=== PATIENT | female | born 1935 | race Caucasian/White ===

== ENCOUNTER 2018-02-03 09:03 | Inpatient (IN) | payer OTHER ==
[2018-01-30 12:51] VITALS: Ht 160 cm; Wt 47.7 kg
--- NOTE | 2018-02-02 14:55 | History and Physical ---
History & Physical Date Feb 02, 2018. Chief Complaint left shoulder pain History of Present Illness The patient is a 82 year old female with complaints of left shoulder pain following a fall. She was treated conservatively by another provider but she was failing to make progress. She later had a CT scan of the left shoulder that noted a 100% displaced proximal humerus fx. She is now being set up for surgical tx. Past Medical/Surgical History PMH: CAD, HTN, hypercholesterolemia, anxiety/depression Past surgical hx: CABG, bilateral foot surgeries, cholecystectomy, hysterectomy Family hx: noncontributory Social hx: Denies tobacco use Allergies Coded Allergies: No Known Allergies (Unverified , 01/30/18) Home Medications Scheduled Aspirin (Aspirin Ec), 81 MG PO HS Calcium (Calcium), 600 MG PO QAM Lisinopril (Prinivil), 20 MG PO HS Metoprolol Tartrate (Lopressor) (Lopressor), 25 MG PO BID Mirtazapine Soltab (Remeron Soltab), 15 MG PO HS Nutritional Supplements (Grapeseed Extract), 1 CAP PO QAM Pravastatin (Pravachol ), 20 MG PO HS Scheduled PRN Clonazepam (Klonopin), 0.5 MG PO BID PRN for Anxiety Physical Examination Skin: warm/dry, no rash Eyes: normal inspection ENT: normal ENT inspection Head: normocephalic, atraumatic Neck: supple, no adenopathy, trachea midline Respiratory/Chest: lungs clear, normal breath sounds, no respiratory distress Cardiovascular: regular rate, rhythm Abdomen / GI: normal bowel sounds, non tender Extremities: + pertinent finding (Left shoulder: + swelling. Tender at the proximal humerus. No ROM or strength testing. NV intact LUE.) Neurologic/Psych: no motor/sensory deficits, alert, oriented x 3 Diagnosis Left proximal humerus fx Plan of Treatment Schedule patient for ORIF left proximal humerus fx. All potential risks, benefits, complications, alternatives, and rehab have been discussed and the patient wishes to proceed. She will be scheduled for 02.03.18.
[~2018-02-03] VITALS: Ht 160 cm; Wt 47.7 kg
[~2018-02-03 09:03] MED LIST: ASPI81TA28 PO; CALC600T37 PO; KLN/5 PO; LACTATED RINGER'S 1000ML 1,000 ML IV SCH; LISI20TA3 PO; METO25TA56 PO; MIRT15TA2 PO; NUTRCAP54 PO; PRAV20TA PO
--- NOTE | 2018-02-03 09:34 | DIAGNOSTIC IMAGING REPORT ---
CHEST ONE VIEW PORTABLE HISTORY: Preop. STAT CXR STAT UPON ARRIVAL COMPARISON: None. FINDINGS: The lungs are mildly hyperexpanded with apical predominant emphysematous changes. There are poststernotomy changes. The lungs are clear. The heart is mildly enlarged. No pleural effusions. No pneumothorax. There is a left humeral neck fracture which is mildly displaced. IMPRESSION: 1. Mildly displaced left humeral neck fracture. 2. Otherwise, no acute process within the chest. Electronically signed by: Jorge De Santiago M.D. 02/03/2018 9:32 AM Dictated Date/Time: 02/03/2018 9:31 AM
[2018-02-03 09:40] VITALS: BP 176/65; PULSE 74; TEMP 36.6; O2SAT 99
[2018-02-03] MEDS ORDERED: ROPIVACAINE 0.5% 5 MG/ML 30 ML VIAL ONE (10:36)
[2018-02-03] MEDS ORDERED: DEXAMETHASONE SOD INJ 4 MG/ML VIAL ONE ×2 (10:36→13:10)
[2018-02-03] MEDS ORDERED: CEFAZOLIN SOD 1000MG/7.5 ML IV PUSH ONE (10:57)
[2018-02-03] MEDS ORDERED: NURSING VERBAL MED ORDER ONE (11:00)
--- NOTE | 2018-02-03 11:03 | History & Physical Bridge Note ---
H&P Re-Evaluation Bridge Note: I have examined the patient, reviewed the History & Physical and in the interval since the performance of the History & Physical I have noted the following changes of clinical significance: No changes noted
[2018-02-03] MEDS ORDERED: ONDANSETRON INJ 2 MG/ML 2 ML VIAL IV PRN ×2 (12:00→17:30)
[2018-02-03] MEDS ORDERED: FENTANYL CITRATE INJ 50 MCG/1 ML 2 ML VIAL IV PRN (12:00)
[2018-02-03] MEDS ORDERED: HYDROmorphone INJ 0.5 MG/0.5 ML SYR IV PRN (12:00)
[2018-02-03] MEDS ORDERED: ATROPINE SULFATE 0.1 MG/ML 5ML SYR IV PRN (12:00)
[2018-02-03] MEDS ORDERED: LABETALOL HCL IV 5 MG/ML 20ML IV PRN (12:00)
[2018-02-03] MEDS ORDERED: EpHEDrine SULFATE INJ 50 MG/ML AMP IV PRN (12:00)
[2018-02-03] MEDS ORDERED: MEPERIDINE HCL 25 MG/ML CARP IV PRN (12:00)
[2018-02-03] MEDS ORDERED: LIDOCAINE HCL 2% 2 ML VIAL (20MG/ML) ONE (12:11)
[2018-02-03] MEDS ORDERED: PROPOFOL IV EMULSION 10 MG/ML 20 ML VIAL ONE (12:11)
[2018-02-03] MEDS ORDERED: FENTANYL CITRATE INJ 50 MCG/1 ML 2 ML VIAL ONE (12:12)
[2018-02-03] MEDS ORDERED: MIDAZOLAM HCL 1 MG/ML 2ML VIAL ONE (12:12)
[2018-02-03] MEDS ORDERED: ONDANSETRON INJ 2 MG/ML 2 ML VIAL ONE (13:10)
[2018-02-03] MEDS ORDERED: ROCURONIUM BROMIDE 10 MG/ML 5 ML VIAL ONE (13:11)
[2018-02-03] MEDS ORDERED: BACITRACIN 50000 UNIT VIAL ONE (13:58)
[2018-02-03] MEDS ORDERED: EpHEDrine SULFATE INJ 50 MG/ML AMP ONE (14:46)
[2018-02-03] MEDS ORDERED: BUPIVACAINE/EPINEPHRINE 0.5% MPF 1:200,000 30 ML VIAL ONE (15:18)
--- NOTE | 2018-02-03 17:29 | DIAGNOSTIC IMAGING REPORT ---
L HUMERUS MIN 2 VIEW ROUTINE CLINICAL HISTORY: Internal fixation. COMPARISON STUDY: No previous studies for comparison. Fluoroscopy time: 2 minutes and 38 seconds. FINDINGS: 3 fluoroscopic images demonstrate internal fixation of a left humeral neck fracture with plate and screws. Hardware is intact and there are no unexpected radiopaque foreign bodies. Fracture alignment appears near anatomic. IMPRESSION: Expected postoperative findings following internal fixation of a left humeral neck fracture. Electronically signed by: Pete Willard M.D. 02/03/2018 5:27 PM Dictated Date/Time: 02/03/2018 5:27 PM
[2018-02-03] MEDS ORDERED: MoRPHine SULFATE 2 MG/ML CARP IV PRN (17:30)
[2018-02-03] MEDS ORDERED: CLONAZEPAM 0.5 MG TAB PO PRN (17:30)
[2018-02-03] MEDS ORDERED: ALUMINUM/MAGNESIUM SUSP 30 ML UDC PO PRN (17:30)
[2018-02-03] MEDS ORDERED: BISACODYL 10 MG SUPP PR PRN (17:30)
[2018-02-03] MEDS ORDERED: MAGNESIUM HYDROXIDE SUSP 30 ML UDC PO PRN (17:30)
--- NOTE | 2018-02-03 17:38 | [facility] Post Operative Brief Note ---
Immediate Operative Summary Operative Date Feb 03, 2018. Pre-Operative Diagnosis Left proximal humerus nonunion fracture Post-Operative Diagnosis Left proximal humerus nonunion fracture Procedure(s) Performed Open Reduction Internal Fixation Left Proximal Humerus Nonunion Fracture w/ Application Allograft Surgeon Dr. Maryanne English Commissions Coordinator Surgeon(s) Nick Boyer PA-C Estimated Blood Loss 20 ML Findings Consistent with Post-Op Diagnosis Specimens none per surgeon Drains None Anesthesia Type General Regional (w/ local) Complication(s) none Disposition Accompanied Pt To Recover: no Disposition: Recovery Room / PACU
--- NOTE | 2018-02-03 18:25 | Anesthesiology Progress Note ---
Anesthesia Post Op Note Date & Time Feb 03, 2018 at 18:25 Vital Signs Pain Intensity: 0 Vital Signs Past 12 Hours Date Time Temp Pulse Resp B/P (MAP) Pulse Ox O2 Delivery O2 Flow Rate FiO2 02/03/18 18:15 36.1 68 14 186/83 98 Nasal Cannula 2 02/03/18 18:05 65 18 158/73 96 Nasal Cannula 2 02/03/18 17:55 65 17 167/91 100 Nasal Cannula 2 02/03/18 17:45 66 18 147/54 100 Oxymask 8 02/03/18 17:35 36.1 79 16 154/61 99 Oxymask 8 02/03/18 09:40 36.6 74 18 176/65 (102) 99 Notes Mental Status: alert / awake / arousable, participated in evaluation Pt Amnestic to Procedure: Yes Nausea / Vomiting: adequately controlled Pain: adequately controlled Airway Patency, RR, SpO2: stable & adequate BP & HR: stable & adequate Hydration State: stable & adequate Anesthetic Complications: no major complications apparent
[2018-02-03 18:45] VITALS: BP 145/90; PULSE 62; TEMP 36.4; O2SAT 98
[2018-02-03 19:18] VITALS: BP 138/62; PULSE 67; TEMP 36.5; O2SAT 97
[2018-02-03 20:00] VITALS: BP 161/64; PULSE 77; TEMP 36.4; O2SAT 96
[2018-02-03] MEDS ORDERED: D5W AND 1/2NSS + 20MEQ KCL 1,000 ML IV SCH (20:00)
--- NOTE | 2018-02-03 20:22 | OPERATIVE REPORT ---
DATE OF OPERATION: 02/03/2018 PREOPERATIVE DIAGNOSIS: Left angulated proximal humeral nonunion. POSTOPERATIVE DIAGNOSIS: Left angulated proximal humeral nonunion. PROCEDURE: Open reduction internal fixation left proximal humeral angulated nonunion with application Synthes proximal locking plate and allograft bone. SURGEON: Derek English DO MITTEN STITCHER: SUSANA Schaefer, who was present for patient positioning, sterile prep and drape, management of retractors and instruments. He was present through the critical portions of the case including wound closure, application of sterile dressing and transport of the patient to recovery. ANESTHESIA: General LMA with interscalene block and local. SPECIMENS: None. DRAINS: None. COMPLICATIONS: None. BLOOD LOSS: 20 mL PERTINENT HISTORY: This is an 82-year-old female who sustained a fall on her left outstretched upper extremity. She had been seen in clinic and was initially treated with nonoperative management as per usual for this type of fracture with a sling. Subsequent x-rays noted reasonable alignment; however, the patient failed develop to any healing bone at the fracture site and after a three-month period of nonoperative treatment, the patient was then scheduled for ORIF of her nonunion. All potential risks, benefits, complications, alternatives, rehab, potential for incomplete relief of symptoms, need for further surgery, DVT, PE, , persistent pain, swelling, scarring, weakness, neurovascular injury, wound complications, hardware failure, nonunion, malunion, and bone fracture were discussed with the patient. The patient decided to proceed with the procedure as indicated. DESCRIPTION OF PROCEDURE: After interscalene block was administered in the preop holding, the patient taken to operative suite, placed supine on the operating room table. After review of the consent and identification of proper operative site, the patient was anesthetized and LMA was placed. The patient was placed in a semi-beach chair position on a regular operative bed with a bolster of towels under the left scapula. Next, the left shoulder and upper extremity was then sterilely prepped and draped in usual fashion. The 15 blade scalpel was used to make an incision essentially at the mid plane of the mid lateral line of the left proximal humerus extending distally from the acromion process. The incision was deepened through subcutaneous tissue and meticulous hemostasis was achieved with electrocautery. Full thickness skin flaps were developed. The deltoid fascia was then encountered and using palpation and visualization, the raphae between the anterior and middle heads of the deltoid was then developed with Metzenbaum scissor dissection and blunt dissection. Army-Annabella retractors were used to retract the muscular tissue and the fascia and bursa were then encountered. This was then split proximally and then traced distally. Due to the nonunion with malalignment and angulation, careful dissection was needed to be performed as the fracture callus and interstitial scarring with immature bone callus that surrounded the axillary nerve. Careful dissection was performed using Metzenbaum scissors and a Arvin elevator. Once the neurovascular bundle was encountered and identified, a vessel loop was carefully placed around the neurovascular bundle with no tension. This was then followed by further dissection through the immature bone callus and scar tissue. A combination of rongeur, forceps and guerrero elevator was used to release soft tissue and immature bone callus. Once the fracture was then mobilized, it was then reduced and then pinned in place with multiple 1.6 mm threaded guide pins placed under live fluoroscopic assistance. Next, the 5-hole Synthes proximal humeral locking plate was then provisionally fixed to the lateral aspect of the proximal humerus using live fluoroscopic assistance for guidance. Next, the sliding and gliding hole was then used to stabilize the plate to the bone under live fluoroscopic assistance with a nonlocking screw and then multiple locking screws were placed first proximally and then distally to stabilize the plate, screw and the fracture in a near-anatomic position. There was noted to be some bone loss at the site of the fracture. Therefore, approximately 15 mL of cancellous allograft was then impacted into the fracture site. Wound was copiously irrigated with sterile normal saline. All the provisional pins were removed from the proximal humerus and near-anatomic reduction and fixation had been achieved. A #2 FiberWire suture used to repair the split in the rotator cuff proximally. The deltoid fascia was then closed using #1 Vicryl. The dermis was closed using buried 2-0 Vicryl and the skin was closed using skin jose. The skin incision was then injected with Marcaine with epinephrine and then a sterile compressive dressing and sling was applied. The patient was awakened and taken to recovery in stable condition. I attest to the content of the Intraoperative Record and any orders documented therein. Any exception s are noted below.
[2018-02-03] MEDS ORDERED: LISINOPRIL 20 MG TAB PO SCH (21:00)
[2018-02-03] MEDS ORDERED: PRAVASTATIN SOD 20 MG TAB PO SCH (21:00)
[2018-02-03] MEDS ORDERED: ASPIRIN 81 MG ECTAB PO SCH (21:00)
[2018-02-03] MEDS ORDERED: MIRTAZAPINE SOLTAB 15 MG PO SCH (21:00)
[2018-02-03 22:14] VITALS: BP 121/60; PULSE 72
[2018-02-03] MEDS: DOCUSATE SODIUM 100 MG CAP PO SCH (22:17)
[2018-02-03] MEDS: METOPROLOL TARTRATE 25 MG TAB PO SCH (22:17)
[2018-02-03] MEDS: ACETAMINOPHEN 500 MG TAB PO SCH (22:17)
[2018-02-03] MEDS: CEFAZOLIN IV 1,000 MG in SYRINGE 0 ML IV SCH (22:18)
[2018-02-03 22:56] VITALS: BP 146/62; PULSE 69; TEMP 36.4; O2SAT 99
[2018-02-04 03:38] VITALS: BP 132/76; PULSE 64; TEMP 36.6; O2SAT 96
[2018-02-04] MEDS: CEFAZOLIN IV 1,000 MG in SYRINGE 0 ML IV SCH (05:05)
[2018-02-04] MEDS: ACETAMINOPHEN 500 MG TAB PO SCH ×2 (05:05→13:48)
[2018-02-04 05:56] VITALS: BP 133/62; PULSE 78; TEMP 36.8; O2SAT 98
[2018-02-04] MEDS ORDERED: CEFAZOLIN 1000MG IV PUSH 7.5 ML IV SCH (06:00)
[2018-02-04 06:25] LABS: HEMATOCRIT 31.4 % (37-47); HEMOGLOBIN 10.5 g/dL (12.0-16.0); MEAN CELL VOLUME 92.9 fL (80-100); MEAN CORPUSCULAR HEMOGLOBIN 31.1 pg (25-34); MEAN CORPUSCULAR HGB CONC 33.4 g/dl (32-36); MEAN PLATELET VOLUME 9.6 fL (7.4-10.4); PLATELET COUNT 199 K/uL (130-400); RED CELL DISTRIBUTION WIDTH CV 13.1 % (11.5-14.5); RED CELL DISTRIBUTION WIDTH SD 44.3 fL (36.4-46.3); WHITE BLOOD COUNT 10.98 K/uL (4.8-10.8)
[2018-02-04 06:51] LABS: CALCIUM 8.7 mg/dl (8.5-10.1); CREATININE 0.94 mg/dl (0.60-1.20); POTASSIUM 4.4 mmol/L (3.5-5.1)
--- NOTE | 2018-02-04 07:59 | Orthopedic Progress Note ---
Orthopedic Progress Note Date of Service Feb 04, 2018. Subjective Post OP Day: 1 Reports: feeling well Objective N/V intact (Fingers mobile), dressing C/D/I Date Time Temp Pulse Resp B/P (MAP) Pulse Ox O2 Delivery O2 Flow Rate FiO2 02/04/18 05:56 36.8 78 16 133/62 (85) 98 Room Air 02/04/18 03:38 36.6 64 14 132/76 (94) 96 Room Air 02/04/18 00:00 Room Air 02/03/18 22:56 36.4 69 18 146/62 (90) 99 Room Air 02/03/18 22:14 72 121/60 (80) 02/03/18 20:00 36.4 77 17 161/64 (96) 96 Nasal Cannula 1.0 02/03/18 19:18 36.5 67 17 138/62 (87) 97 Nasal Cannula 1.0 02/03/18 18:45 Nasal Cannula 2.0 02/03/18 18:45 36.4 62 18 145/90 (108) 98 Nasal Cannula 2.0 02/03/18 18:45 Nasal Cannula 2.0 02/03/18 18:25 66 17 150/50 95 Nasal Cannula 2 02/03/18 18:15 36.1 68 14 186/83 98 Nasal Cannula 2 02/03/18 18:05 65 18 158/73 96 Nasal Cannula 2 02/03/18 17:55 65 17 167/91 100 Nasal Cannula 2 02/03/18 17:45 66 18 147/54 100 Oxymask 8 02/03/18 17:35 36.1 79 16 154/61 99 Oxymask 8 02/03/18 09:40 36.6 74 18 176/65 (102) 99 Laboratory Results 24 Hours: Test 02/04/18 05:19 Hematocrit 31.4 % Hemoglobin 10.5 g/dL Assessment & Plan Assessment: 82 yo female stable POD #1 s/p ORIF left prox humerus fracture Plan: 1. Med management 2. DVT prophylaxis- SCDs 3. D/C planning- home vs SNF, pt states family wants her to go to SNF as she is alone at home a lot of the time
[2018-02-04] MEDS ORDERED: RXC5 PO (08:01)
[2018-02-04] MEDS ORDERED: ACET-24 PO (08:01)
--- NOTE | 2018-02-04 08:05 | Discharge Instructions ---
Discharge Instructions Date of Service Feb 04, 2018. Admission Reason for Admission: Left Displaced Fracture Of Upper End Of Humerus Discharge Discharge Diagnosis / Problem: Left prox humerus fracture Discharge Goals Goal(s): Decrease discomfort, Improve function Activity Recommendations Activity Limitations: as noted below . Instructions / Follow-Up Instructions / Follow-Up Discontinue dressing 02/05 and pt may shower. Apply light dressing to shoulder wound as needed. Frequent ice to shoulder as needed for discomfort. Maintain elbow at side at all times except for therapy or otherwise instructed. May move elbow, wrist, and hand as tolerated. Current Hospital Diet Patient's current hospital diet: AHA Diet (Heart Healthy) Discharge Diet Recommended Diet: AHA Diet (Heart Healthy) Procedures Procedures Performed: Open Reduction Internal Fixation Left Proximal Humerus Nonunion Fracture w/ Application Allograft Pending Studies Studies pending at discharge: no Medical Emergencies . Who to Call and When: Medical Emergencies: If at any time you feel your situation is an emergency, please call 911 immediately. . Non-Emergent Contact Non-Emergency issues call your: Surgeon Call Non-Emergent contact if: temperature is above 101.5, your pain is not controlled, wound has increased drainage, wound has increased redness . "Provider Documentation" section prepared by Barrett Bernabe PA-C. . [place] Drug Monitoring Program Search Results: patient reviewed within database, no issues identified
[2018-02-04] MEDS: METOPROLOL TARTRATE 25 MG TAB PO SCH (09:06)
[2018-02-04] MEDS: DOCUSATE SODIUM 100 MG CAP PO SCH (09:06)
--- NOTE | 2018-02-04 09:57 | Medical Consult ---
Consultation Date of Consultation: Feb 04, 2018. Attending Physician: Derek English D.O. Reason for Consultation: Medical Management History of Present Illness Ms. Rios is an 82 y/o female with PMHx of CAD S/P CABG, HTN, HLD, and Anxiety/Depression who is S/P ORIF L Prox. Humerus Fx on 02/03. Patient is up ambulating in her room this morning. Reports no pain at this time. Had some numbness/tingling from nerve block yesterday and just has a little remaining in her thumb. Good circulation and movement to fingers. She is tolerating a diet without issue and has no complaints. Is planning on returning home today. She is hemodynamically stable. Past Medical/Surgical History 1. CAD S/P CABG 2. HTN 3. HLD 4. Anxiety/Depression 5. S/P Cholecystectomy 6. S/P Hysterectomy Family History Patient reports no known family medical history. Social History Smoking Status: Never Smoker Smokeless Tobacco Use: No Alcohol Use: none Drug Use: none Allergies Coded Allergies: No Known Allergies (Unverified , 02/03/18) Current Inpatient Medications Current Inpatient Medications Medications (Trade) Dose Ordered Sig/Tosha Route Start Time Stop Time Status Last Admin Dose Admin Cefazolin Sodium 7.5 ml @ 2.5 mls/min PREOP IV 02/04/18 06:00 02/04/18 18:00 Aspirin (Ecotrin Tab) 81 mg HS PO 02/03/18 21:00 03/05/18 20:59 02/03/18 22:17 81 MG Clonazepam (Klonopin Tab) 0.5 mg BID PRN PO 02/03/18 17:30 03/05/18 17:29 Lisinopril (Zestril Tab) 20 mg HS PO 02/03/18 21:00 03/05/18 20:59 02/03/18 22:17 20 MG Metoprolol Tartrate (Lopressor Tab) 25 mg BID PO 02/03/18 21:00 03/05/18 20:59 02/04/18 09:06 25 MG Mirtazapine (Remeron Solutab) 15 mg HS PO 02/03/18 21:00 03/05/18 20:59 02/03/18 22:17 15 MG Pravastatin Sodium (Pravachol Tab) 20 mg HS PO 02/03/18 21:00 03/05/18 20:59 02/03/18 22:17 20 MG Morphine Sulfate (MoRPHine SULFATE INJ) 2 mg Q4HWA PRN IV 02/03/18 17:30 02/17/18 17:29 Ondansetron HCl (Zofran Inj) 4 mg Q6H PRN IV 02/03/18 17:30 03/05/18 17:29 Al Hydroxide/Mg Hydroxide (Maalox Susp) 30 ml Q4H PRN PO 02/03/18 17:30 03/05/18 17:29 Oxycodone HCl (Roxicodone Immediate Rel Tab) `1-2 TABS FOR PAIN `1 TAB... Q4H PRN PO 02/03/18 17:30 02/17/18 17:29 Acetaminophen (Tylenol Tab) 1,000 mg Q8 PO 02/03/18 22:00 03/05/18 21:59 02/04/18 05:05 1,000 MG Magnesium Hydroxide (Milk Of Magnesia Susp) 30 ml Q6H PRN PO 02/03/18 17:30 03/05/18 17:29 Bisacodyl (Dulcolax Supp) 10 mg DAILY PRN SD 02/03/18 17:30 03/05/18 17:29 Docusate Sodium (coLACE CAP) 100 mg BID PO 02/03/18 21:00 03/05/18 20:59 02/04/18 09:06 100 MG Review of Systems Constitutional: No fever, No chills ENT: No nasal symptoms, No sore throat, No trouble swallowing Respiratory: No cough, No shortness of breath Cardiovascular: No chest pain Abdomen: No pain, No nausea, No vomiting, No diarrhea, No constipation Musculoskeletal: No swelling, No calf pain Genitourinary - Female: No dysuria Hematologic / Lymphatic: No abnormal bleeding/bruising Integumentary: No rash Physical Exam Date Time Temp Pulse Resp B/P (MAP) Pulse Ox O2 Delivery O2 Flow Rate FiO2 02/04/18 05:56 36.8 78 16 133/62 (85) 98 Room Air 02/04/18 03:38 36.6 64 14 132/76 (94) 96 Room Air 02/04/18 00:00 Room Air 02/03/18 22:56 36.4 69 18 146/62 (90) 99 Room Air 02/03/18 22:14 72 121/60 (80) 02/03/18 20:00 36.4 77 17 161/64 (96) 96 Nasal Cannula 1.0 02/03/18 19:18 36.5 67 17 138/62 (87) 97 Nasal Cannula 1.0 02/03/18 18:45 Nasal Cannula 2.0 02/03/18 18:45 36.4 62 18 145/90 (108) 98 Nasal Cannula 2.0 02/03/18 18:45 Nasal Cannula 2.0 02/03/18 18:25 66 17 150/50 95 Nasal Cannula 2 02/03/18 18:15 36.1 68 14 186/83 98 Nasal Cannula 2 02/03/18 18:05 65 18 158/73 96 Nasal Cannula 2 02/03/18 17:55 65 17 167/91 100 Nasal Cannula 2 02/03/18 17:45 66 18 147/54 100 Oxymask 8 02/03/18 17:35 36.1 79 16 154/61 99 Oxymask 8 General Appearance: WD/WN, no apparent distress, + thin Head: normocephalic, atraumatic Eyes: sclerae normal ENT: hearing grossly normal Neck: supple, no JVD, trachea midline Respiratory/Chest: lungs clear, normal breath sounds, no respiratory distress, no accessory muscle use Cardiovascular: regular rate, rhythm Abdomen/GI: normal bowel sounds, non tender, soft Extremities/Musculoskelatal: no calf tenderness, + pertinent finding (L arm in sling with good movement to fingers and immediate cap refill; dressing is C/D/I) Neurologic/Psych: alert, oriented x 3 Skin: normal color, warm/dry Laboratory Results Last 24 Hours Test 02/04/18 05:19 White Blood Count 10.98 K/uL Red Blood Count 3.38 M/uL Hemoglobin 10.5 g/dL Hematocrit 31.4 % Mean Corpuscular Volume 92.9 fL Mean Corpuscular Hemoglobin 31.1 pg Mean Corpuscular Hemoglobin Concent 33.4 g/dl RDW Standard Deviation 44.3 fL RDW Coefficient of Variation 13.1 % Platelet Count 199 K/uL Mean Platelet Volume 9.6 fL Sodium Level 136 mmol/L Potassium Level 4.4 mmol/L Chloride Level 103 mmol/L Carbon Dioxide Level 25 mmol/L Anion Gap 8.0 mmol/L Blood Urea Nitrogen 18 mg/dl Creatinine 0.94 mg/dl Est Creatinine Clear Calc Drug Dose 35.4 ml/min Estimated GFR () 65.9 Estimated GFR (Non- 56.9 BUN/Creatinine Ratio 19.1 Random Glucose 229 mg/dl Calcium Level 8.7 mg/dl Assessment & Plan Ms. Rios is an 82 y/o female with PMHx of CAD S/P CABG, HTN, HLD, and Anxiety/Depression who is S/P ORIF L Prox. Humerus Fx on 02/03. S/P ORIF L Proximal Humerus Fracture from Nonunion after Fall: - Pain management, IVF, DVT Prophylaxis, PT/OT, Surgical management per primary CAD S/P CABG/HTN/HLD: STABLE - ASA 81 mg daily; Lisinopril 20 mg daily; Lopressor 25 mg BID, Pravastatin 20 mg daily Disposition: Medically stable for discharge per primary team. SNF vs home. Hospitalist service will sign off at this time but if anything changes please do not hesitate to contact us.
[2018-02-04] MEDS: OXYCODONE HCL IR 5 MG TAB (IMMEDIATE RELEASE) PO PRN ×2 (10:02→14:16)
[2018-02-04] MEDS ORDERED: COUGH DROP (SUGAR FREE) LOZ 24 LOZ/1 BOX LOZ ONE (10:03)
[2018-02-04 14:04] VITALS: BP 133/62; PULSE 78; TEMP 36.8; O2SAT 98
--- NOTE | 2018-02-07 12:35 | DISCHARGE SUMMARY ---
DISCHARGE DIAGNOSIS: Left proximal humerus nonunion fracture. SECONDARY DIAGNOSES: Coronary artery disease, hypertension, hypercholesterolemia, anxiety, depression. CONSULTS: None. COMPLICATIONS: None. PROCEDURES: Open reduction internal fixation, left proximal humerus nonunion fracture with application of allograft by Dr. English on 02/03/2018. BRIEF HISTORY: As dictated in the history and physical. HOSPITAL SUMMARY: The patient was admitted on the above-noted date and had the above-noted surgery performed which she tolerated well. On the first postoperative day, she was feeling well. Neurovascularly intact. Dressings clean, dry and intact. Vital signs were stable. She is afebrile. The patient was likely wanting to go home and do self-care and did not feel that she needed home health services. Apparently, her daughter works at the [facility] in [place] and felt that she needed any for the services that would be the place that she went to go. She was otherwise remaining stable and it was felt that she could be discharged home with her son on 02/04/2018. For further review, please see chart. LAB AND X-RAY DATA: As per chart. DISCHARGE INSTRUCTIONS: The patient was discharged home in satisfactory condition on 02/04/2018. DIET: Heart healthy. ACTIVITY: Remove dressing on 02/05/2018 and she may shower, apply light dressing to the shoulder wound as needed. Frequent ice to shoulder as needed for discomfort. Maintain elbow at side all times except for therapy or otherwise instructed, may move elbow, wrist and hand as tolerated. Follow up with Dr. English in 2 weeks. The patient to call for appointment if one has not been made for you. DISCHARGE MEDICATIONS: Acetaminophen 1000 mg p.o. q. 8 hours for 14 days, oxycodone 5-10 mg p.o. q. 6 hours p.r.n. pain, 30 tablets dispensed. Resume home meds as listed including aspirin 81 mg p.o. at bedtime, calcium 600 mg p.o. q.a.m., clonazepam 0.5 mg p.o. b.i.d. p.r.n., lisinopril 20 mg p.o. at bedtime, metoprolol 25 mg p.o. b.i.d., Remeron 50 mg p.o. at bedtime, grape seed extract 1 cap p.o. q.a.m. and pravastatin 20 mg p.o. at bedtime.
--- NOTE | 2018-02-09 13:04 | EDITING REQUIRED CODING QUERY ---
BMI To promote full compliance with coding requirements relating to patient care, physician participation is requested in all cases of certified coder uncertainty. Please assist us with the question(s) below: Please place an X within the parenthesis (x). If other, please document: BMI 18.6 was documented in this record for this patient. If the BMI is significant, please check the box that provides a more specific associated diagnosis: ( ) Overweight/Obese ( ) Obesity ( ) Morbid obesity ( ) Obesity Hypoventilation Syndrome (OHS) ( ) Heathy weight, not significant (X) Underweight/Thin ( ) Other, please specify Thank you Hermelinda Pruitt
== END 2018-02-04 14:44 | disposition home or self-care (01) | DRG 493 ==
LOC: EDBD → C.ACU 09:03 → C.3E 09:17 → ENRESERV 18:06
PROVIDERS: ADMIT Orthopaedic Surgery Sports Medicine; ATTEND Orthopaedic Surgery Sports Medicine
PROC: 0PU Upper Bones, Supplement (ICD-10-PCS; principal; 2018-02-03 12:00)
PROC: 0PSG04Z Reposition Left Humeral Shaft with Internal Fixation Device, Open Approach (ICD-10-PCS; principal; 2018-02-03 12:00)
DX: S42.292K Other displaced fracture of upper end of left humerus, subsequent encounter for fracture with nonunion (principal); Z68.1 Body mass index [BMI] 19.9 or less, adult; I11.9 Hypertensive heart disease without heart failure; I25.10 Atherosclerotic heart disease of native coronary artery without angina pectoris; E78.00 Pure hypercholesterolemia, unspecified; F41.9 Anxiety disorder, unspecified; F32.9 Major depressive disorder, single episode, unspecified; R63.6 Underweight; Z79.899 Other long term (current) drug therapy; Z79.82 Long term (current) use of aspirin; Z95.1 Presence of aortocoronary bypass graft; W19.XXXS Unspecified fall, sequela; Y99.8 Other external cause status